=== PATIENT | male | born 1960 | race Caucasian/White ===

== ENCOUNTER 2018-06-27 23:34 | Emergency (ER) | payer BC ==
[~2018-06-27] VITALS: Ht 182.9 cm; Wt 117.9 kg
== END 2018-06-28 08:21 | disposition designated cancer center or children's hospital (05) ==
LOC: ER 23:34 → CPU-OBS 23:46 → ER 23:46
DX: I21.29 ST elevation (STEMI) myocardial infarction involving other sites (principal); I20.8 Other forms of angina pectoris; I10 Essential (primary) hypertension; R07.89 Other chest pain